=== PATIENT | female | born 1990 | race Caucasian/White ===

== ENCOUNTER → 2016-07-16 08:13 | Day surgery (SDC) | payer BC ==
[~2016-07-16 08:13] MED LIST: Buffered Lidocaine 1% SYRIN* 3 ML/SYR SYRINGE INTRADERM ONE; DOXYcycline CAP(*) 100 MG PO ONE; Dexamethasone IV* 4 MG/ML 1 ML (4 MG) ONE; Famotidine IV* 10 MG/ML 2 ML (20 mg) IV ONE; Famotidine IV* 10 MG/ML 2 ML (20 mg) ONE; KETAMINE HCL* 50 MG/ML 10 ML VIAL ONE; Ketorolac INJ* 30 MG/ML 1 ML VIAL ONE; Lidocaine 1% INJ* 10 MG/ML 30 ML SDV ONE; Lidocaine 2% PF* 5 ML VIAL ONE; Metoclopramide TAB* 10 MG ONE; Metoclopramide TAB* 10 MG PO ONE; Midazolam* 1 MG/ML 2 ML VIAL (2 MG) ONE; Midazolam* 1 MG/ML 5 ML VIAL (5 MG) ONE; Misoprostol TAB* 200 MCG ONE; Ondansetron INJ* 2 MG/ML VIAL IV PRN; Ondansetron INJ* 2 MG/ML VIAL ONE; Propofol* 10 MG/ML 20 ML BTL IV PUSH ONE; fentaNYL* 50 MCG/ML 2 ML VIAL (100 MCG VIAL) IV PRN; fentaNYL* 50 MCG/ML 2 ML VIAL (100 MCG VIAL) ONE; oxyCODONE/Acetamin 5/325 MG* TAB PO PRN
[2016-07-16 11:01] VITALS: BP 121/77
--- NOTE | 2016-07-17 08:57 | OP ---
DATE OF OPERATION: 07/16/16 [facility] DATE OF : 86 SURGEON: Ursula Gongora MD. BUTTONER: None. ANESTHESIOLOGIST: Lauri Freeman MD ANESTHESIA: Sedation with a paracervical block with 1% lidocaine. PRE-OP DIAGNOSIS: Missed at 9 weeks and 1 day. POST-OP DIAGNOSIS: Missed at 9 weeks and 1 day. OPERATIVE PROCEDURE: Dilation, evacuation, and curettage. ESTIMATED BLOOD LOSS: 100 cc. URINE OUTPUT: 50 cc. FLUIDS: 1000 cc of crystalloid. FINDINGS: Revealed a hard uterus x4 quadrants, intrauterine contents consistent with products of conception. SPECIMENS: Intrauterine contents. COMPLICATIONS: None apparent. DISPOSITION: Stable, to recovery room. DESCRIPTION OF PROCEDURE: The patient was placed in dorsal lithotomy position. Legs were placed in candy-cane stirrups. The perineum and vagina were prepped and dapped in a sterile standard fashion. The patient was addressed with the universal protocol. After completion of universal protocol, a straight cath was placed with drainage of 50 cc of clear yellow urine from the bladder. Straight cath was removed. Sterile speculum was inserted. Cervix was visualized. The anterior lip was injected with 1% lidocaine 1 cc and then a single-tooth tenaculum was placed in the anterior lip. Paracervical block was then carried out for administration of 9 cc of 1% lidocaine. The cervix was then dilated to #9 Hegar dilator and using a 10 mm curved suction curette, an evacuation was then carried out in a standard fashion. Sharp curettage was then performed confirming removal of intrauterine contents. Single-tooth tenaculum was removed, sterile speculum was removed, and 800 mcg of misoprostol was placed intravaginally. All the sponge, instrument, and blade counts were correct throughout the case. The patient was taken to recovery room after returning to dorsal lithotomy position. The patient was noted to be in stable condition. [id number]/[facility] #: [id number] [facility]
== END | disposition home or self-care (01) ==
LOC: OR 08:13
PROVIDERS: ATTEND Obstetrics & Gynecology
DX: O02.1 Missed abortion (principal)
CPT/HCPCS: 88305; A9270-GY; J1100; J1885; J2001; J2250; J2405; J2704; J3010

== ENCOUNTER 2017-11-03 05:14 | Inpatient (IN) | payer BC ==
[2017-11-03] MEDS ORDERED: Clindamycin 900 MG IVPREMIX(* 900 MG/50 ML SDV IV ONE (05:54)
[2017-11-03] MEDS ORDERED: Clindamycin 900 MG IVPREMIX(* 900 MG/50 ML SDV IV SCH (06:00)
[2017-11-03 06:15] LABS: ABS Basophils 0.1 10^3/ul (0-0.2); ABS Eosinophils 0 10^3/ul (0-0.6); ABS Lymphocytes 0.8 10^3/ul (1.0-4.8); ABS Monocytes 0.6 10^3/ul (0-0.8); ABS Neutrophils 10.1 10^3/ul (1.5-7.7); ABS Nucleated RBC 0 10^3/ul; Eosinophil % 0.2 % (0-6); Hematocrit 39 % (35-47); Hemoglobin 13.2 g/dl (12.0-16.0); Lymphocyte % 6.8 % (25-47); Mean Corpuscular HGB Conc 34 g/dl (31-36); Mean Corpuscular Hemoglobin 30 pg (27-31); Mean Corpuscular Volume 88 fL (80-97); Mean Platelet Volume 9.4 um3 (7.4-10.4); Nucleated Red Blood Cells % 0; Platelet Count 133 10^3/ul (150-450); Red Blood Count 4.38 10^6/ul (4.00-5.40); Red Cell Distribution Width 14 % (10.5-15); White Blood Count 11.5 10^3/ul (3.5-10.8)
--- NOTE | 2017-11-03 06:23 | HP ---
General Information - Reason for Visit Labor - General Information Maternal Age: 27 Grav: 2 Para: 0 SAB: 1 IEA: 0 Estimated Due Date: 11/08/17 Determined By: LMP Gestational Age in Weeks/Days: 39-2/7 Maternal Blood Type and Rh: A Positive - Results this Serology/RPR Result: Non-Reactive Rubella Result: Immune HBsAg Result: Negative HIV Result: Negative GBS Culture Result: Positive Past Medical History Delivery History: See Records Delivery History Comment: 06/2016 MAB D&C Pertinent Past Medical History: Non-Contributory Pertinent Past Surgical History: See Records Past Surgical History Comment: 2016 D&C Pertinent Family History: See Records Family History Comment: Father: HTN, [place] Mother: Thyroid disease. oral cancer PGM: IDDM. Alzheimer's PGF: Alzheimer's MGM: Heart disease. Pace maker in place MGF: HTN, High cholesterol, Heart disease, ETOH abuse - Antepartal Records Antepartal Records: Reviewed, Uncomplicated Exam Allergies/Adverse Reactions: Allergies amoxicillin Allergy (Verified 11/03/17 04:44) Itching cefprozil Allergy (Verified 11/03/17 04:44) Itching sulfamethoxazole [From Bactrim] Allergy (Verified 11/03/17 04:44) Itching trimethoprim [From Bactrim] Allergy (Verified 11/03/17 04:44) Itching BP 120/67 HR 93 RR 18 SpO2 100% RA Lab Values - Entire Visit: Laboratory Tests 11/03/17 06:00 WBC 11.5 H RBC 4.38 Hgb 13.2 Hct 39 MCV 88 MCH 30 MCHC 34 RDW 14 Plt Count 133 L MPV 9.4 Neut % (Auto) 87.3 H Lymph % (Auto) 6.8 L Atlantic % (Auto) 5.2 Eos % (Auto) 0.2 Baso % (Auto) 0.5 Absolute Neuts (auto) 10.1 H Absolute Lymphs (auto) 0.8 L Absolute Monos (auto) 0.6 Absolute Eos (auto) 0 Absolute Basos (auto) 0.1 Absolute Nucleated RBC 0 Nucleated RBC % 0 - Measurements Height: 5 ft 6 in Weight: 175 lb Weight in lbs: 175.214699 Body Mass Index (BMI): 28.2 Pre- Weight: 145 lb - Exam Breast: Breast Exam Deferred CVA: No CVA Tenderness Extremities: No Edema Heart: Normal Rhythm/Heart Sounds HEENT: No Significant Findings Lungs: Clear Bilaterally Rectal: Rectal Exam Deferred Reflexes: DTR 2+ Thyroid: No Thyromegaly - Abdominal Exam Abdomen Exam: Non-Tender - Ultrasound/Biophysical Profile Ultrasound Status: Not Done Targeted Exam Findings See L&D Outpatient Visit Provider Note for Findings: N/A Estimated Weight: 7-7.5lbs by Sylvia Cervical Exam: 5cm Effacement: 80% Station: -1 - Per RN Presenting Part: Vertex Membrane Status: Intact Sterile Speculum Exam: Not done Bleeding/Discharge: None EFM Findings - External Monitor Findings Baseline Heart Rate: 135 External Monitor Findings: Accelerations Present, No Pattern of Variable or Late Decelerations, Variability Moderate, Baseline Stable External Monitor Findings Comment: Category I Contractions: Regular, Moderate, 45-90 Seconds Contraction Frequency: q 2-3 min Assessment/Plan - Assessment IUP at 39-2/7 in labor No evidence of metabolic acidemia - Obstetrical Risk Factors Obstetrical Risk Factors: GBS Positive - Plan Plan: Observe, Antibiotic Prophylaxis Plan Comment: Admit. Pt prefers expectant management for now. Report to Nikos Huddleston CNM who will assume care at 0800 - Date/Time of Admission Date of Admission: 11/03/17 Time of Admission: 05:50
[2017-11-03] MEDS ORDERED: Oxytocin in LR* 0 UNITS/0 ML BAG IVPB ONE (11:35)
[2017-11-03] MEDS ORDERED: Dibucaine 1% 28.35 GM TUBE PR PRN (12:49)
[2017-11-03] MEDS ORDERED: Witch Hazel PAD* JAR TOPICAL PRN (12:49)
[2017-11-03] MEDS ORDERED: Tetan/Diph/Pertus SYR(Tdap)* 0.5 ML SYR(BOOSTRIX) use SYR IM ONE (12:49)
[2017-11-03] MEDS ORDERED: Glycerin ADULT SUPP PR PRN (12:49)
[2017-11-03] MEDS ORDERED: Acetaminophen TAB* 325 MG PO PRN (12:49)
[2017-11-03] MEDS: Docusate CAP* 100 MG PO SCH ×2 (13:55→19:35)
[2017-11-03] MEDS: Ibuprofen TAB* 600 MG PO PRN ×2 (13:55→19:35)
--- NOTE | 2017-11-03 18:54 | PROCNOTE ---
[facility] OB: Delivery Note - Delivery A Date of : 11/03/17 Time of : 12:09 [place] Sex: Male Weight at : 9 lb 7 oz Score 1 Minute: 8 Score 5 Minutes: 8 Gestational Age in Weeks and Days at Delivery: 39 Weeks and 2 Days Delivery Method: Spontaneous Vaginal Labor: Spontaneous Did Patient attempt ?: N/A, No Previous Amniotic Fluid: Clear Estimated Blood Loss: 350 Anesthesia/Analgesia: None Delivered By: Chidi Huddleston - Nursery Level of Nursery: Regular/Bedside - Perineum Perineal Injury: 1st Degree - Repaired with 3-0 Rapide under 1% lidocaine Perineal Repair: By Delivering Practioner - Events Delivery Events of Note: Partial Course of Antibiotics - Additional Delivery Notes Additional Delivery Notes: Pt admitted in spontaneous active labor with steady progress to complete. SROM with intact membrane filled with fluid expelled from vagina just prior to onset of urge to push. LOL 8'17", pushed 29 minutes. Baby born OA to TRACEY with compound posterior hand by face. Shoulders followed easily with maternal efforts. Baby to maternal abdomen, spontaneous cry with dry and stimulation but some grunting and gurgling noted. Bulb syringe used to remove secretions. Cord doubly clamped and cut by patient at approx 5 minutes and baby transferred to warmer. Automatic Centrifugal Station Operator in to assess. 02 and suction given. Placenta delivered with gentle cord traction @ 1217. Fundus firm to massage and bleeding minimal. First degree perineal repair. Baby returned to maternal abdomen to initiate . Later transferred to NICU d/t tachypnea, low O2 sats. Mother stable and well.
[2017-11-04] MEDS: Ibuprofen TAB* 600 MG PO PRN ×2 (07:28→15:23)
[2017-11-04 07:40] LABS: ABS Basophils 0 10^3/ul (0-0.2); ABS Eosinophils 0.1 10^3/ul (0-0.6); ABS Lymphocytes 1.8 10^3/ul (1.0-4.8); ABS Monocytes 1.2 10^3/ul (0-0.8); ABS Nucleated RBC 0 10^3/ul; Eosinophil % 0.4 % (0-6); Hematocrit 35 % (35-47); Hemoglobin 12.3 g/dl (12.0-16.0); Lymphocyte % 12.5 % (25-47); Mean Corpuscular HGB Conc 35 g/dl (31-36); Mean Corpuscular Hemoglobin 31 pg (27-31); Mean Corpuscular Volume 87 fL (80-97); Nucleated Red Blood Cells % 0; Platelet Count 170 10^3/ul (150-450); Red Blood Count 4.03 10^6/ul (4.00-5.40); Red Cell Distribution Width 14 % (10.5-15); White Blood Count 14.1 10^3/ul (3.5-10.8)
[2017-11-04] MEDS ORDERED: Ferrous Gluconate TAB* 324 MG TAB PO SCH (09:00)
[2017-11-04] MEDS: Docusate CAP* 100 MG PO SCH ×2 (10:16→15:23)
[2017-11-05] MEDS: Docusate CAP* 100 MG PO SCH ×2 (00:14→08:23)
[2017-11-05] MEDS: Ibuprofen TAB* 600 MG PO PRN ×2 (00:15→08:23)
[2017-11-05 08:08] VITALS: BP 116/74
--- NOTE | 2017-11-05 10:41 | PTEDU ---
Patient Name: IBRAHIMA WONG IBRAHIMA WONG selected video: Never Ever Shake a Baby to view on 11/05/2017 at 10:41:[address] [id number]
== END 2017-11-05 14:42 | disposition home or self-care (01) | DRG 560 ==
LOC: MCHOBOUT 05:14 → MCHOB 05:49
PROVIDERS: ADMIT Midwife; ATTEND Midwife
PROC: 10907ZC Drainage of Amniotic Fluid, Therapeutic from Products of Conception, Via Natural or Artificial Opening (ICD-10-PCS; principal; 2017-11-03)
PROC: 10E0XZZ Delivery of Products of Conception, External Approach (ICD-10-PCS; 2017-11-03)
PROC: 4A1HX4Z Monitoring of Products of Conception, Cardiac Electrical Activity, External Approach (ICD-10-PCS; 2017-11-03)
PROC: 0HQ9XZZ Repair Perineum Skin, External Approach (ICD-10-PCS; 2017-11-03)
DX: O32.6XX0 Maternal care for compound presentation, not applicable or unspecified (principal); O99.824 Streptococcus B carrier state complicating childbirth; O32.2XX0 Maternal care for transverse and oblique lie, not applicable or unspecified; O70.0 First degree perineal laceration during delivery; Z88.0 Allergy status to penicillin; Z88.2 Allergy status to sulfonamides; Z88.8 Allergy status to other drugs, medicaments and biological substances; Z3A.39 39 weeks gestation of pregnancy; Z37.0 Single live birth
CPT/HCPCS: 36415; 85025; 86850; 86900; 86901; 90715; A9270-GY

== ENCOUNTER 2018-07-16 05:40 | Inpatient (IN) | payer BC ==
[2018-07-16] MEDS ORDERED: NS 0.9% 1000 ML** 1,000 ML IV ONE ×2 (05:50→06:35)
[2018-07-16] MEDS ORDERED: Ondansetron INJ* 2 MG/ML VIAL IV ONE (05:51)
--- NOTE | 2018-07-16 05:51 | ED ---
Abdominal Pain/Female - HPI Summary HPI Summary: Pt. is a 27 y.o female who presents to the ER for RLQ abd. pain that started yesterday morning. Pain is constant and worse with movement. Pt. describes pain as dull when lying and sharp with movement. Associated symptoms of low grade fever and nausea. Denies vomiting, diarrhea, constipation, URI sxs, urinary sxs , vaginal discharge or bleeding. No past medical hx. Sx hx D and C. Sxs are moderate in severity. Movement makes sxs worse. Rest makes sxs better. - History of Current Complaint Chief Complaint: EDAbdPain Stated Complaint: RLQ ABD PAIN PER PT. Time Seen by Provider: 07/16/18 05:50 Hx Obtained From: Patient Pain Intensity: 4 Allergies/Adverse Reactions: Allergies Allergy/AdvReac Type Severity Reaction Status Date / Time amoxicillin Allergy Itching Verified 07/16/18 05:45 cefprozil Allergy Itching Verified 07/16/18 05:45 sulfamethoxazole Allergy Itching Verified 07/16/18 05:45 [From Bactrim] trimethoprim [From Bactrim] Allergy Itching Verified 07/16/18 05:45 Home Medications: Home Medications NK [No Home Medications Reported] 07/16/18 [History Confirmed 07/16/18] PMH/Surg Hx/FS Hx/Imm Hx Previously Healthy: Yes Cardiovascular History: Denies: Hx Pacemaker/ICD Sensory History: Reports: Hx Contacts or Glasses - INSTRUCTS GIVEN Denies: Hx Hearing Aid Opthamlomology History: Reports: Hx Contacts or Glasses - INSTRUCTS GIVEN Infectious Disease History: No Infectious Disease History: Denies: Traveled Outside the [place] in Last 30 Days - Family History Known Family History: Positive: Non-Contributory - Social History Occupation: Employed Full-time Lives: With Family Alcohol Use: None Substance Use Type: Reports: None Smoking Status (MU): Never Smoked Tobacco Review of Systems Positive: Fever, Chills Eyes: Negative ENT: Negative Cardiovascular: Negative Negative: Chest Pain Respiratory: Negative Negative: Shortness Of Breath, Cough Positive: Abdominal Pain, Nausea. Negative: Vomiting, Diarrhea Genitourinary: Negative Negative: dysuria, discharge, frequency, flank pain, hematuria Musculoskeletal: Negative Negative: Myalgia Skin: Negative Neurological: Negative All Other Systems Reviewed And Are Negative: Yes Physical Exam Triage Information Reviewed: Yes Vital Signs On Initial Exam: Initial Vitals Temp Pulse Resp BP Pulse Ox 99.7 F 116 16 141/85 98 07/16/18 05:42 07/16/18 05:42 07/16/18 05:42 07/16/18 05:42 07/16/18 05:42 Vital Signs Reviewed: Yes Appearance: Positive: Well-Appearing - Pt. sitting up in bed in NAD. Family present. Skin: Positive: Warm, Dry Head/Face: Positive: Normal Head/Face Inspection Eyes: Positive: Normal, EOMI, BERNARDO Neck: Positive: Supple Respiratory/Lung Sounds: Positive: Clear to Auscultation, Breath Sounds Present. Negative: Rales, Rhonchi, Wheezes Cardiovascular: Positive: Normal, Tachycardia Abdomen Description: Positive: Other: - Abd. is soft with marked tenderness to RLQ. No rebound tenderness or guarding. No CVA tenderness bilaterally. Neurological: Positive: Normal, CN Intact II-III Psychiatric: Positive: Affect/Mood Appropriate Diagnostics - Vital Signs Vital Signs Temp Pulse Resp BP Pulse Ox 07/16/18 05:42 99.7 F 116 16 141/85 98 - Laboratory Result Diagrams: 07/16/18 06:02 07/16/18 06:02 Lab Statement: Any lab studies that have been ordered have been reviewed, and results considered in the medical decision making process. Abdominal Pain Fem Course/Dx - Course Course Of Treatment: Pt. presenting with RLQ pain. Temp. minimally elevated in ED. HR midly tachycardic. BP stable. Given sxs and exam will obtain labs and CT scan to r/o appendicitis. Pt. declines antiemetics/analgesics. IV fluids started. Labs shows CBC at 14.5. CRP mildly elevated. CT per radiology: IMPRESSION: #. Acute appendicitis. No appendicolith visualized. Negative for periappendiceal abscess. or associated bowel obstruction. I spoke with oncall surgery, Dr. Kasper, and pt. taken to OR. - Diagnoses Differential Diagnosis: Positive: Appendicitis, Bowel Obstruction, Ectopic , Ovarian Cyst, Pelvic Inflammatory Disease, , Urinary Tract Infection Provider Diagnoses: Appendicitis Discharge - Sign-Out/Discharge Documenting (check all that apply): Patient Departure Patient Received Moderate/Deep Sedation with Procedure: No - Discharge Plan Condition: Stable Disposition: ADMITTED TO [facility] - Billing Disposition and Condition Condition: STABLE Disposition: Admitted to [facility]
[2018-07-16 06:22] LABS: ABS Basophils 0.1 10^3/ul (0-0.2); ABS Eosinophils 0 10^3/ul (0-0.6); ABS Lymphocytes 0.8 10^3/ul (1.0-4.8); ABS Monocytes 1.1 10^3/ul (0-0.8); ABS Neutrophils 12.5 10^3/ul (1.5-7.7); ABS Nucleated RBC 0 10^3/ul; Eosinophil % 0 %; Hematocrit 40 % (33-41); Hemoglobin 13.6 g/dL (12.0-16.0); Lymphocyte % 5.7 %; Mean Corpuscular HGB Conc 34 g/dL (31-36); Mean Corpuscular Hemoglobin 28 pg (27-31); Mean Corpuscular Volume 83 fL (80-97); Mean Platelet Volume 8.4 fL (7.4-10.4); Nucleated Red Blood Cells % 0; Platelet Count 224 10^3/uL (150-450); Red Blood Count 4.78 10^6 /uL (3.70-4.87); Red Cell Distribution Width 13 % (10.5-15); White Blood Count 14.5 10^3/uL (3.5-10.8)
[2018-07-16 06:32] LABS: Albumin 4.4 g/dL (3.2-5.2); Anion Gap 6 mmol/L (2-11); CO2 Carbon Dioxide 26 mmol/L (22-32); Calcium 9.3 mg/dL (8.6-10.3); Chloride 104 mmol/L (101-111); Potassium 3.6 mmol/L (3.5-5.0); Sodium 136 mmol/L (135-145)
[2018-07-16 06:38] LABS: ALT 11 U/L (7-52); AST 13 U/L (13-39); Albumin/Globulin Ratio 1.8 (1-3); Alkaline Phosphatase 71 U/L (34-104); BUN/Creatinine Ratio 13.9 (8-20); Blood Urea Nitrogen 14 mg/dL (6-24); C Reactive Protein 19.58 mg/L (<8.01); EGFR African American 78.4 (>60); EGFR Non-African American 64.8 (>60); Globulin 2.5 g/dL (2-4); Glucose 176 mg/dL (70-100); Total Protein 6.9 g/dL (6.4-8.9)
[2018-07-16 06:43] LABS: HCG Pregnancy < 0.60 mIU/mL
[2018-07-16] MEDS ORDERED: Iohexol 300* (CONTRAST) 10 ML SDV IV ONE (06:51)
[2018-07-16 07:06] LABS: Urine Appearance Clear; Urine Bilirubin Negative (Negative); Urine Blood Negative (Negative); Urine Color Straw; Urine Glucose Negative (Negative); Urine Ketones Negative (Negative); Urine Nitrite Negative (Negative); Urine Protein Negative (Negative); Urine Specific Gravity 1.004 (1.010-1.030); Urine Urobilinogen Negative (Negative)
[2018-07-16] MEDS ORDERED: Bupivacaine 0.25% W/EPI* 10 ML SDV ONE (09:43)
[2018-07-16] MEDS ORDERED: Clindamycin 900 MG IVPREMIX(* 900 MG/50 ML SDV IV ONE (09:50)
[2018-07-16] MEDS ORDERED: Sodium Citrate/Citric Acid* 15 ML UDC ONE (10:14)
[2018-07-16] MEDS ORDERED: Propofol* 10 MG/ML 20 ML BTL ONE (10:21)
[2018-07-16] MEDS ORDERED: fentaNYL* 50 MCG/ML 2 ML VIAL (100 MCG VIAL) ONE (10:21)
[2018-07-16] MEDS ORDERED: Rocuronium* 10 MG/ML VIAL ONE (10:25)
[2018-07-16] MEDS ORDERED: DiMENhydriNATE IV* 50 MG/ML VIAL IV PUSH PRN (10:59)
[2018-07-16] MEDS ORDERED: Naloxone* 0.4 MG/ML 1 ML VIAL IV PRN (10:59)
[2018-07-16] MEDS ORDERED: fentaNYL* 50 MCG/ML 2 ML VIAL (100 MCG VIAL) IV PRN (10:59)
[2018-07-16] MEDS ORDERED: Neostigmine Methylsulfate* 1 MG/ML 10 ML VIAL (1 mg/ml) ONE (11:05)
[2018-07-16] MEDS ORDERED: Glycopyrrolate IV* 0.2 MG/ML 1 ML VIAL ONE (11:05)
[2018-07-16] MEDS ORDERED: Ketorolac INJ* 30 MG/ML 1 ML VIAL ONE (11:23)
--- NOTE | 2018-07-16 11:25 | HP ---
Amended report to enter cosigning physician. CC: Dr. Simmons; Dr. Shazia Liz* PREOPERATIVE HISTORY AND PHYSICAL: DATE OF ADMISSION: This patient was seen in the [facility] Emergency Department on 07/16/18. ATTENDING PHYSICIAN: Dr. Julius Simmons* (dictated by Jessica Wright NP). CHIEF COMPLAINT: Worsening right lower quadrant abdominal pain. HISTORY OF PRESENT ILLNESS: The patient is a 27-year-old female, who reported the onset of right lower quadrant abdominal pain that started at 9 a.m. yesterday. She felt mildly nauseated, but did not vomit. Her last bowel movement was formed and brown yesterday. She does report pressure with urination, but no burning or frequency. She reports that at rest her abdominal pain is rated 5/10, but with any movement, it increases to 8/10. Previous abdominal surgery was D and C, 07/16/16. CAT scan of the abdomen and pelvis in the emergency department was reviewed by Dr. Kasper and was consistent with appendicitis. White blood cell count was elevated at 14.5. PAST MEDICAL HISTORY: Generally healthy. She is followed for primary care by Dr. Shazia Liz; she had a vaginal child 8 months ago and is currently breast- feeding. PAST SURGICAL HISTORY: D and C, 07/16/16. OB HISTORY: 1, para 1. She has an IUD. HCG on admission was negative. CURRENT MEDICATIONS: None. ALLERGIES: Include AMOXICILLIN, CEFPROZIL, and BACTRIM, all cause itching. FAMILY HISTORY: Her twin sister had an appendectomy 4 years ago at age 25; no other family gastrointestinal history. No known anesthesia complications or bleeding tendencies or history of blood clots. SOCIAL HISTORY: She is and has an 8-month-old son and is a physical therapist here at [facility]; she has never been a smoker. She denies the use of alcohol or other substances. REVIEW OF SYSTEMS: Constitutional: No chills. She did have a low-grade fever at home. No excessive fatigue or weight loss. General: No previous anesthesia complications. No history of deep vein thrombosis or pulmonary embolism. No history of blood transfusions or bleeding tendencies. Respiratory : Nonsmoker. No dyspnea on exertion. No chronic cough. Cardiovascular: Good exercise tolerance. No anginal chest pain or palpitations. Gastrointestinal: As described in history of present illness. Genitourinary: Pressure with urination. No frequency or urgency. Musculoskeletal: No joint or back pain. Neurologic: No blurred vision. No headache. PHYSICAL EXAMINATION GENERAL SURVEY: The patient is a 27-year-old female, well-developed, well- nourished, in no acute distress. VITAL SIGNS: Temperature in the emergency department 99.7. Vital signs per nursing. HEENT: Benign. NECK: Supple. No cervical lymphadenopathy. LUNGS: Breath sounds bilaterally clear and equal. HEART: Regular rate and rhythm. No murmurs or rubs appreciated. ABDOMEN: Active bowel sounds, nondistended, soft, exquisitely tender over McBurney's point. No obvious masses or organomegaly. Mild guarding. PELVIC: Deferred. RECTAL: Deferred. EXTREMITIES: Warm without edema. Full range of motion. NEUROLOGIC: Alert and oriented x3. Steady gait. SKIN: Warm, dry, and intact. DIAGNOSTIC STUDIES/LAB DATA: White blood cell count is 14.5. CRP 19.58. Creatinine 1.01, glucose 176. CAT scan of the abdomen and pelvis consistent with appendicitis. IMPRESSION: Acute appendicitis. PLAN: To the operating room today with Dr. Simmons for laparoscopic appendectomy. The risks, benefits, and alternatives, usual postoperative recovery were discussed with the patient. Her questions were answered and verbal consent was obtained and written consent will be obtained by Dr. Simmons. TIME SPENT: Sixty minutes with greater than 50% in gyra-gw-jadu history taking , physical examination, and coordination of care. CHERELLE WRIGHT NP [id number]/[facility] #: [id number] [facility]
--- NOTE | 2018-07-16 11:37 | BRIEFOPN ---
Brief Operative Note - Surgery Procedures: Procedures OPERATIVE REPORT Pre-op: Acute appendicitis Post-Op: Acute suppurative appendicitis Procedure:Laparoscopic appendectomy Surgeon: MD Iris Asst: none Anes: general with local , Dr. Reaves IVF:min EBL:min Specimen: Appendix Drain: None Wound: 3 To PACU
[2018-07-16 12:33] VITALS: BP 113/64
--- NOTE | 2018-07-16 13:56 | OP ---
DATE OF OPERATION: 07/16/18 - ROOM #AA-[id number] DATE OF : 86 SURGEON: Julius Simmons MD. BLADE BENDER FURNACE TENDER: None. ANESTHESIOLOGIST: Dr. Ge. ANESTHESIA: General with local. PRE-OP DIAGNOSIS: Acute appendicitis. POST-OP DIAGNOSIS: Acute suppurative appendicitis. OPERATIVE PROCEDURE: Laparoscopic appendectomy. ESTIMATED BLOOD LOSS: Minimal. IV FLUIDS: 1 L of crystalloid. SPECIMEN: Appendix. WOUND CLASSIFICATION: III. COMPLICATIONS: None. DRAINS: None. FINDINGS: Acute suppurative appendicitis without evidence of abscess or perforation or gangrene. BRIEF HISTORY: Ms. Aundrea Gardiner is a healthy 27-year-old woman who presented to the emergency room with almost 24 hours of abdominal discomfort, became localized in the right lower quadrant. She was noted to have an elevated white blood cell count and tenderness in the right lower quadrant on physical exam. A CAT scan of the abdomen and pelvis showed findings consistent with acute appendicitis without abscess or perforation. The patient was seen in consultation and after review of her history and physical exam and diagnostic workup, diagnosis of acute appendicitis has been made and it is recommended that she undergo a laparoscopic appendectomy. The procedure was discussed with the patient and her and the risks of but not limited to bleeding, infection, intraabdominal abscess formation, injury to peritoneal and retroperitoneal structures, possibility of an open procedure, abscess formation, blood clots and the risk of general anesthesia were all explained. DESCRIPTION OF PROCEDURE: Written informed consent was obtained, the abdomen was marked with indelible ink and preoperative antibiotics were administered. The patient was taken to the operating room and placed in the supine position. Sequential compression devices and a warming blanket were applied. The abdomen was prepped and draped in usual sterile fashion. Time-out verification was completed. Initially, a small transverse incision was made in the umbilical crease and the peritoneal cavity was entered under direct vision. A 12-mm blunt port was inserted and the abdomen was insufflated to 15 mmHg. Under direct vision, a 5-mm port was placed in the left lower abdominal wall and a second 5-mm port was placed in the suprapubic position. On exam of the lower abdomen and pelvis, there was no evidence of purulent fluid , although there was some free, relatively clear fluid in the pelvis and the right lower quadrant. Terminal ileum and cecum appeared to be unremarkable. Upon rotating the cecum medially, it was apparent that there was an acutely suppurative inflamed appendix which was adherent to the cecum and extending more superiorly with the lateral peritoneal attachments. These attachments were taken down sharply to bring the appendix up into view of the cecum and right colon. The mesoappendix was divided sequentially with the LigaSure device right down to the base of the appendix. The inflammatory process was mainly in the distal half of the appendix and as mentioned there was no evidence of gangrene, perforation or spillage. The base of the appendix and cecum were unremarkable. The appendix was then removed after firing a mcneal load of a 45-mm Endo-PATT stapler at the base. It was placed in an EndoCatch bag and brought out through the umbilical incision. Hemostasis was assured. The staple line was intact. All ports were removed under direct vision of the camera. The umbilical fascia was closed with interrupted 0 Vicryl suture. The skin at all three incisions was approximated with subcuticular 4-0 Vicryl suture. Steri-Strips were applied. The patient was taken to the recovery room in stable condition. [id number]/[facility] #: [id number] [facility]
== END 2018-07-16 12:44 | disposition home or self-care (01) | DRG 225 ==
LOC: ED 05:40 → AA 09:33
PROVIDERS: ADMIT Surgery; ATTEND Surgery
PROC: 0DTJ4ZZ Resection of Appendix, Percutaneous Endoscopic Approach (ICD-10-PCS; principal; 2018-07-16 10:00)
DX: K35.80 Unspecified acute appendicitis (principal); R00.0 Tachycardia, unspecified; Z88.8 Allergy status to other drugs, medicaments and biological substances; Z88.1 Allergy status to other antibiotic agents; Z97.5 Presence of (intrauterine) contraceptive device
CPT/HCPCS: 36415; 74177; 80053; 81003; 83605; 83690; 84702; 85025; 86140; 87040; 88302; 88304; 99283; A9270-GY; J1885; J2704; J2710; J3010; Q9967

== ENCOUNTER 2019-06-08 19:38 | Emergency (ER) | payer BC ==
--- NOTE | 2019-06-08 21:51 | ED ---
Abdominal Pain/Female - HPI Summary HPI Summary: Patient with history of 11 weeks complains of bilateral lower abdominal pain starting yesterday. States left side worse than right. Pain described as a pressure, intermittent, /10. Dr. blair advised her to come to the ED for further evaluation. Patient has had ultrasound with a which was normal except ago. Denies fever, cough, sore throat, CP, SOB, N/V/D, change in urine, change in BM, vaginal symptoms. She 3 P1. Medical history is none. Abdominal surgical history is appendectomy. - History of Current Complaint Chief Complaint: EDAbdPain Stated Complaint: ABD PAIN/11 WKS PREG PER PT Time Seen by Provider: 06/08/19 21:48 Hx Obtained From: Patient Onset/Duration: Sudden Onset, Lasting Hours Timing: Minutes Severity Initially: Moderate Severity Currently: None Pain Intensity: 0 Pain Scale Used: 0-10 Numeric Location: Discrete At: RLQ, Discrete At: LLQ, Suprapubic Radiates: No Character: Cramping Aggravating Factor(s): Nothing Alleviating Factor(s): Nothing Associated Signs and Symptoms: Positive: Negative Allergies/Adverse Reactions: Allergies Allergy/AdvReac Type Severity Reaction Status Date / Time amoxicillin Allergy Itching Verified 07/16/18 05:45 cefprozil Allergy Itching Verified 07/16/18 05:45 sulfamethoxazole Allergy Itching Verified 07/16/18 05:45 [From Bactrim] trimethoprim [From Bactrim] Allergy Itching Verified 07/16/18 05:45 Home Medications: Home Medications NK [No Home Medications Reported] 06/08/19 [History Confirmed 06/08/19] PMH/Surg Hx/FS Hx/Imm Hx Endocrine/Hematology History: Denies: Hx Diabetes Cardiovascular History: Denies: Hx Hypertension, Hx Pacemaker/ICD Respiratory History: Denies: Hx Chronic Obstructive Pulmonary Disease (COPD) History: Denies: Hx Renal Disease Sensory History: Reports: Hx Contacts or Glasses - INSTRUCTS GIVEN Denies: Hx Hearing Aid Opthamlomology History: Reports: Hx Contacts or Glasses - INSTRUCTS GIVEN EENT History: Denies: Hx Deafness Neurological History: Denies: Hx Dementia - Surgical History Surgery Procedure, Year, and Place: D&C Infectious Disease History: No Infectious Disease History: Denies: Traveled Outside the [place] in Last 30 Days - Family History Known Family History: Positive: Non-Contributory - Social History Alcohol Use: None Substance Use Type: Reports: None Smoking Status (MU): Never Smoked Tobacco Review of Systems Constitutional: Negative Eyes: Negative ENT: Negative Cardiovascular: Negative Respiratory: Negative Positive: Abdominal Pain Genitourinary: Negative Musculoskeletal: Negative Skin: Negative Neurological/Mental Status: Negative Psychological: Normal All Other Systems Reviewed And Are Negative: Yes Physical Exam Triage Information Reviewed: Yes Vital Signs On Initial Exam: Initial Vitals Temp Pulse Resp BP Pulse Ox 99.8 F 75 20 135/80 100 06/08/19 19:40 06/08/19 19:40 06/08/19 19:40 06/08/19 19:40 06/08/19 19:40 Vital Signs Reviewed: Yes Appearance: Positive: Well-Appearing Skin: Positive: Warm Head/Face: Positive: Normal Head/Face Inspection Eyes: Positive: Normal Neck: Positive: Supple Respiratory/Lung Sounds: Positive: Clear to Auscultation Cardiovascular: Positive: Normal Abdomen Description: Positive: Nontender Musculoskeletal: Positive: Normal Neurological: Positive: Normal Psychiatric: Positive: Normal AVPU Assessment: Alert - Anna Coma Scale Best Eye Response: 4 - Spontaneous Best Motor Response: 6 - Obeys Commands Best Verbal Response: 5 - Oriented Coma Scale Total: 15 Procedures - Sedation Patient Received Moderate/Deep Sedation with Procedure: No Diagnostics - Vital Signs Vital Signs Temp Pulse Resp BP Pulse Ox 06/08/19 19:40 99.8 F 75 20 135/80 100 - Laboratory Result Diagrams: 06/08/19 21:59 06/08/19 21:59 Lab Statement: Any lab studies that have been ordered have been reviewed, and results considered in the medical decision making process. Abdominal Pain Fem Course/Dx - Course Course Of Treatment: Patient with history of 11 weeks complains of bilateral lower abdominal pain starting yesterday. States left side worse than right. Pain described as a pressure, intermittent, 4/10. Dr. blair advised her to come to the ED for further evaluation. Patient has had ultrasound with a which was normal except ago. Denies fever, cough, sore throat, CP, SOB, N/V/D, change in urine, change in BM, vaginal symptoms. She 3 P1. Medical history is none. Abdominal surgical history is appendectomy. Signs within normal limits. Labs unremarkable. Transvaginal ultrasound negative. Urine negative. Patient will follow up with [facility]. - Diagnoses Provider Diagnoses: , Abdominal pain Discharge ED - Sign-Out/Discharge Documenting (check all that apply): Patient Departure - Discharge Plan Condition: Stable Disposition: HOME Patient Education Materials: (ED), Acute Abdominal Pain (ED), Abdominal Pain in (ED) Referrals: Tere Kyle NP [Primary Care Provider] - Additional Instructions: Have a follow-up conversation with your [facility] tomorrow. Return to the ED for any new or worsening symptoms. - Billing Disposition and Condition Condition: STABLE Disposition: Home
[2019-06-08 22:09] LABS: ABS Eosinophils 0.1 10^3/ul (0-0.6); ABS Lymphocytes 1.1 10^3/ul (1.0-4.8); ABS Monocytes 0.6 10^3/ul (0-0.8); ABS Neutrophils 3.5 10^3/ul (1.5-7.7); Eosinophil % 1.5 %; Hematocrit 35 % (35-47); Hemoglobin 12.1 g/dL (12.0-16.0); Lymphocyte % 20.8 %; Mean Corpuscular HGB Conc 35 g/dL (31-36); Mean Corpuscular Hemoglobin 30 pg (27-31); Mean Corpuscular Volume 86 fL (80-97); Mean Platelet Volume 8.1 fL (7.4-10.4); Platelet Count 204 10^3/uL (150-450); Red Blood Count 4.08 10^6 /uL (3.70-4.87); Red Cell Distribution Width 13 % (10-15); White Blood Count 5.4 10^3/uL (3.5-10.8)
[2019-06-08 22:25] LABS: Albumin 4.1 g/dL (3.2-5.2); Albumin/Globulin Ratio 1.8 (1-3); BUN/Creatinine Ratio 16.7 (8-20); EGFR African American 127.2 (>60); EGFR Non-African American 105.2 (>60); Globulin 2.3 g/dL (2-4); Potassium 3.4 mmol/L (3.5-5.0); Total Bilirubin 0.2 mg/dL (0.2-1.0); Total Protein 6.4 g/dL (6.4-8.9)
[2019-06-09 00:02] VITALS: BP 132/71
== END 2019-06-09 00:01 | disposition home or self-care (01) ==
LOC: ED 19:38
DX: O26.891 Other specified pregnancy related conditions, first trimester (principal); R10.31 Right lower quadrant pain; R10.32 Left lower quadrant pain; Z3A.11 11 weeks gestation of pregnancy; Z88.0 Allergy status to penicillin; Z88.1 Allergy status to other antibiotic agents; Z88.2 Allergy status to sulfonamides
CPT/HCPCS: 36415; 76817; 80053; 85025; 99282

== ENCOUNTER 2019-12-25 18:24 | Inpatient (IN) ==
[2019-12-25] MEDS ORDERED: Lactated Ringers 1000 ml BAG 1,000 ML IV ONE (19:15)
[2019-12-25 19:45] LABS: ABS Eosinophils 0.1 10^3/ul (0-0.6); ABS Lymphocytes 1.8 10^3/ul (1.0-4.8); ABS Monocytes 0.7 10^3/ul (0-0.8); ABS Neutrophils 5.4 10^3/ul (1.5-7.7); Eosinophil % 1.3 %; Hematocrit 35 % (35-47); Hemoglobin 11.9 g/dL (12.0-16.0); Lymphocyte % 22.7 %; Mean Corpuscular HGB Conc 34 g/dL (31-36); Mean Corpuscular Hemoglobin 28 pg (27-31); Mean Corpuscular Volume 82 fL (80-97); Mean Platelet Volume 9.8 fL (7.4-10.4); Platelet Count 155 10^3/uL (150-450); Red Blood Count 4.31 10^6 /uL (3.70-4.87); Red Cell Distribution Width 14 % (10-15)
[2019-12-25] MEDS ORDERED: Vancomycin 1,000 MG in NS 0.9% 250 ml 250 ML IVPB SCH (20:00)
[2019-12-25 20:12] LABS: Urine Benzodiazepine Screen None Detected (None Detect); Urine Cannabinoids Screen None Detected (None Detect); Urine Opiates Screen None Detected (None Detect)
[2019-12-25] MEDS ORDERED: Oxytocin in LR 20 UNITS/1,000 ML BAG IVPB ONE (22:26)
[2019-12-25] MEDS ORDERED: Witch Hazel PAD JAR TOPICAL PRN (23:25)
[2019-12-25] MEDS ORDERED: Dibucaine 1% OINT 28.35 GM TUBE PR PRN (23:25)
[2019-12-25] MEDS ORDERED: Oxytocin in LR 20 UNITS/1,000 ML BAG IVPB SCH (23:45)
[2019-12-25] MEDS ORDERED: Lactated Ringers 1000 ml BAG 1,000 ML IV SCH (23:45)
[2019-12-26 08:20] LABS: ABS Lymphocytes 1.6 10^3/ul (1.0-4.8); ABS Monocytes 0.7 10^3/ul (0-0.8); ABS Neutrophils 8.4 10^3/ul (1.5-7.7); Eosinophil % 0.4 %; Hematocrit 32 % (35-47); Hemoglobin 10.8 g/dL (12.0-16.0); Lymphocyte % 14.5 %; Mean Corpuscular HGB Conc 34 g/dL (31-36); Mean Corpuscular Hemoglobin 28 pg (27-31); Mean Corpuscular Volume 82 fL (80-97); Mean Platelet Volume 10.2 fL (7.4-10.4); Platelet Count 149 10^3/uL (150-450); Red Blood Count 3.88 10^6 /uL (3.70-4.87); Red Cell Distribution Width 14 % (10-15); White Blood Count 10.8 10^3/uL (3.5-10.8)
[2019-12-27 16:18] VITALS: BP 112/71
== END 2019-12-27 16:00 | disposition home or self-care (01) | DRG 560 ==
LOC: MCHOBOUT 18:24 → MCHOB 19:37
PROVIDERS: ADMIT Midwife; ATTEND Midwife